=== PATIENT | male | born 1985 | race Hispanic/Latino ===

== ENCOUNTER 2018-11-15 12:54 | Outpatient (CLI) | payer MEDICARE ==
--- NOTE | 2018-11-15 14:19 | MRI ---
Exam: Brain MRI with and without contrast HISTORY: Vascular headache, not classified COMPARISON: None FINDINGS: Gradient echo sequence: No hemorrhage Calvarium: Appropriate T1 marrow signal intensity Midline brain parenchyma: There is mass effect and deformity of the midportion of the corpus callosum secondary to a mixed signal intensity with a fluid/fluid level measuring 2.1 cm mediolateral x 2.4 cm anterior posterior x 1.8 cm craniocaudal. There is mass effect and scalloping and the adjacent cor pus callosum. Lesion is extra-axial. No evidence of enhancement. Brain volume is less than expected for patient's age. Cerebrum:No brain parenchymal mass, mass effect or midline shift. Brain volume is age-appropriate. Co rtical acosta-white matter differentiation preserved Ventricles: No dilated ventricular system. Correlate for communicating hydrocephalus. Note is made of a cavum septum pellucidum and cavum vergae. Sinuses and mastoid air cells: Adequate aeration Diffusion: Central arterial flow is maintained. Absent restricted diffusion. Postcontrast images: No pathologic enhancement of the brain parenchyma. IMPRESSION: 1. 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 Correlate for a congenital cyst versus a com plex arachnoid cyst. Neurocysticercosis is a consideration but presentation is atypical. 2. Brain volume less than expected for patient's age. 3. Dilatation of the ventricular system. Correlate for communicating hydrocephalus. 4. Consider general neurosurgical consultation CODE T Transcribed Date/Time: 11/15/2018 2:27 PM
== END 2018-11-15 12:55 | disposition home or self-care (01) ==
LOC: MRI 12:54
PROVIDERS: ATTEND Psychiatry & Neurology Neurology
DX: G44.1 Vascular headache, not elsewhere classified (principal); G93.89 Other specified disorders of brain
CPT/HCPCS: 70553

== ENCOUNTER 2019-02-08 12:49 | Outpatient (CLI) | payer MEDICARE ==
[2019-02-08] MEDS ORDERED: Magnevist 469MG/ML 20 ML VIAL ONE (13:51)
--- NOTE | 2019-02-08 15:05 | MRI ---
MRI BRAIN WITH AND WITHOUT CONTRAST: HISTORY: Follow-up exam. Preoperative exam. COMPARISON: 11/09/2018 FINDINGS: Gradient echo sequence: No hemorrhage. Calvarium: Appropriate T1 marrow signal intensity. Midline brain parenchyma: Redemonstration of a mixed signal intensity lesion, pericallosal in locatio n. There is no associated enhancement. The lesion is compatible with a pericallosal cyst with a fluid-fluid level, measuring 2.3 cm mediolateral by 2.2 cm anterior-posterior by 1.9 cm craniocaudal. Indentation upon a mid portion of the corpus callosum is noted. Cerebrum:No parenchymal mass, mass effect or midline shift. Brain volume is less than expected for pa tient's age. Ventricles: Mildly dilated ventricular system. Note is made of a cavum septum versus cavum vergae. Sinuses and mastoid air cells: Adequate aeration Diffusion: Central arterial flow is maintained. Absent restricted diffusion. Postcontrast images: No pathologic enhancement of the brain parenchyma. IMPRESSION: Redemonstration of a complex pericallosal cyst. Transcribed Date/Time: 02/08/2019 3:10 PM
== END 2019-02-08 12:50 | disposition home or self-care (01) ==
LOC: MRI 12:49
PROVIDERS: ATTEND Neurological Surgery
DX: G93.9 Disorder of brain, unspecified (principal); G93.0 Cerebral cysts
CPT/HCPCS: 70553; A9579

== ENCOUNTER 2020-01-14 14:18 | Outpatient (CLI) | payer MEDICARE ==
[~2020-01-14 14:18] MED LIST: Magnevist 469MG/ML 20 ML VIAL ONE
--- NOTE | 2020-01-14 15:47 | MRI ---
Exam: Brain MRI with and without contrast HISTORY: Follow-up cyst. COMPARISON: 11/07/2018, 02/08/2019 FINDINGS: Gradient echo sequence: No hemorrhage Calvarium: Appropriate T1 marrow signal intensity Midline brain parenchyma: Unremarkable Cerebrum:Brain volume, less than expected for patient's age. Cortical acosta-white matter differentiati on is preserved. No parenchymal mass, mass effect or midline shift. Redemonstration of nonspecific scattered FLAIR hyperintensities. Ventricles: No hydrocephalus. Note is made of a cavum septa pellucida and cavum verge. There is persi stent dilatation of the ventricular system in keeping with the overall degree of atrophy. Other extra-axial findings: Redemonstration of a complex pericallosal cyst. This has a focus of debri s within its dependent portion. Overall the cyst measures 2.3 cm mediolateral by 2.2 cm anterior posterior by 1.9 cm canal caudal. Stable small focal right sided outpouching. There is displacement o f the anterior cerebral arteries. Diffusely, this cyst measured 1.9 x 2.2 x 2.3 cm. Sinuses and mastoid air cells: Adequate aeration Diffusion: Central arterial flow is maintained. Absent restricted diffusion. Postcontrast images: No pathologic enhancement of the brain parenchyma. IMPRESSION: 1. Redemonstration of a pericallosal cyst. No significant interval increase in size. 2. Stable atrophy and dilatation of ventricular system.
== END 2020-01-14 14:19 | disposition home or self-care (01) ==
LOC: TBSIIMAG 14:18
PROVIDERS: ATTEND Neurological Surgery
DX: D49.6 Neoplasm of unspecified behavior of brain (principal); G31.9 Degenerative disease of nervous system, unspecified
CPT/HCPCS: 70553; A9579

== ENCOUNTER 2024-11-26 13:19 | Outpatient (CLI) | payer OTHER | END 2024-11-26 13:20 | disposition home or self-care (01) | LOC: SCSMRI 13:19 | PROVIDERS: ATTEND Neurological Surgery | DX: D49.6 Neoplasm of unspecified behavior of brain (principal); G93.9 Disorder of brain, unspecified | CPT/HCPCS: 70553; 76376 ==